=== PATIENT | female | born 1930 | race Caucasian/White ===

== ENCOUNTER → 2017-06-22 | Outpatient (CLI) | payer OTHER, BC ==
[~2017-06-22] MED LIST: ACETAMINOPHEN325 M1 PO; ALPRAZOLAM 0.50.5 M1 PO; ALTACE5 M1 PO; AUGMENTIN 875875 MG PO; BYSTOLIC10 MG PO; CEFTIN500 MG PO; CEPACOL SORE T1 EAC2 PO; COUMADIN; COUMADIN 3 MG TA3 MG PO; COUMADIN 4 MG TA4 M1 PO; COUMADIN 5 MG TA5 M1 PO; DEMADEX20 MG PO; DILTIAZEM ER240 M1 PO; FENOFIBRATE160 MG PO; FEOSOL; FLAGYL500 MG PO; FOSAMAX 70 MG T70 M1 PO; GEMFIBROZIL 60600 MG PO; HERBLAX PO; HUMALOG100 UNIT/1; HUMALOG100 UNIT/1 SUBQ; IMDUR 30 MG TAB30 M1 PO; K-DUR 20 MEQ T20 MEQ PO; KEFLEX250 MG PO; LANTUS SUBQ; LASIX 20 MG TAB20 MG PO; MACRODANTIN100 MG PO; MUCINEX TA600 MG/TA2 PO; NEURONTIN 300300 M1 PO; NORCO 5-325 TA1 EACH PO; NORVASC 2.5 MG2.5 MG PO; OS-CAL 500+D C1 EACH PO; POT CHLOR ER; PROTONIX40 M2 PO; SENNA-LAX8.6 MG PO; TOPROL XL25 MG PO; TORSEMIDE20 MG PO; TRAMADOL 50 MG50 MG PO; ULORIC80 MG PO; ULTRAM 50MG TAB50 MG PO; VITAMIN C + RO500 MG PO; [UNRECOGNIZED DRUG - OTHER]
== END ==
LOC: RAD 02:43
DX: Z12.31 Encounter for screening mammogram for malignant neoplasm of breast (principal)